=== PATIENT | male | born 1945 | race Caucasian/White ===

== ENCOUNTER 2019-01-22 13:35 | Emergency (ER) | payer OTHER ==
[2019-01-22 13:41] VITALS: TEMP 97.6; BMI 23.7
--- NOTE | 2019-01-22 13:41 | PDOC ---
History of Present Illness - General Chief Complaint: Laceration Stated Complaint: FALL Time Seen by Provider: 01/22/19 13:41 History Source: Patient Exam Limitations: No Limitations - History of Present Illness Initial Comments: Pt is a 73 yo M, with PMH of PD, CAD (stents x2 and aortic valve repair, on Plavix), BPH, and brain abscess (recurrent with craniectomy, last procedure 2011 ), who is presenting via EMS after a fall from standing height. Pt was walking in an asphalt parking lot, when he tripped in a saba patch and hit the L-side of his head, sustaining a laceration over the L eyebrow. The pt complains only of mild pain over the laceration site. Pt denies any LOC, nausea, vomiting, or weakness. Pt is accompanied by his , who states his behavior has seemed the same. Pt denies any precipitating symptoms prior to the fall, and remembers falling to the ground. Pt denies any fevers/chills, headache, vision changes, syncope, chest pain, palpitations, SOB, nausea/vomiting, abdominal pain, urinary symptoms, diarrhea/constipation, or leg swelling. Social: Pt denies any cigarette, alcohol, or drug use. Pt denies any recent travel or sick contacts. Surgical: aortic valve, cardiac stent x2, craniectomy (abscess drainage). Family: no relevant history. 01/22/19 17:45 01/22/19 17:53 Past History - Travel Traveled outside of the country in the last 30 days: No Close contact w/someone who was outside of country & ill: No - Past Medical History Allergies/Adverse Reactions: Allergies Allergy/AdvReac Type Severity Reaction Status Date / Time Iodinated Contrast- Oral and Allergy Verified 01/22/19 13:36 IV Dye [Iodinated Contrast Media - IV Dye] IV CONTRAST Allergy Uncoded 01/22/19 13:36 Home Medications: Ambulatory Orders Aspirin [ASA -] 81 mg PO DAILY 01/22/19 Carbidopa/Levodopa [Carbidopa-Levodopa 25-100 Tab] 2 each PO QID 01/22/19 Clopidogrel Bisulfate [Plavix] 75 mg PO DAILY 01/22/19 Dutasteride [Avodart] 0.5 mg PO DAILY 01/22/19 Rasagiline Mesylate [Azilect] 1 mg PO DAILY 01/22/19 Rosuvastatin Calcium [Crestor] 20 mg PO HS 01/22/19 Cardiac Disorders: Yes (aortic valve repair, CAD w stents x2, on plavix) Hx Myocardial Infarction: No COPD: No HTN: Yes Kidney Stones: Yes Other medical history: GLAUCOMA,ENLARGED PROSTATE, PARKINSONS, - Surgical History Cardiac Surgery: Yes (2 STENTS) - Immunization History Immunization Up to Date: No - Suicide/Smoking/Psychosocial Hx Smoking History: Former smoker Have you smoked in the past 12 months: No If you are a former smoker, when did you quit?: 35 years ago Information on smoking cessation initiated: No Hx Alcohol Use: No Drug/Substance Use Hx: No Substance Use Type: None Hx Substance Use Treatment: No Trauma Specific PMHX - Complaint Specific PMHX Arthritis: No Back Injury: No Neck Injury: No Hx Sacro Iliac Joint Dysfunction: No Review of Systems - Review of Systems Able to Perform ROS?: Yes Is the patient limited Bulgarian proficient: No Constitutional: Yes: Weight Stable. No: Chills, Diaphoresis, Fever, Loss of Appetite, Weakness HEENTM: Yes: Eye Pain (no pain with EOM, pain over L eye at lac site). No: Recent change in vision, Double Vision, Ear Discharge, Nose Pain, Nose Bleeding , Hearing Loss, Throat Pain, Throat Swelling Respiratory: No: Cough, Orthopnea, Shortness of Breath Cardiac (ROS): No: Chest Pain, Edema, Irregular Heart Rate, Lightheadedness, Palpitations, Syncope, Chest Tightness ABD/GI: No: Constipated, Diarrhea, Nausea, Poor Appetite, Poor Fluid Intake, Vomiting : No: Burning, Dysuria, Pain, Urgency Musculoskeletal: No: Back Pain, Joint Pain, Muscle Pain, Muscle Weakness, Neck Pain Integumentary: No: Rash Neurological: No: Headache, Numbness, Paresthesia, Weakness, Unsteady Gait, Dizziness Psychiatric: No: Sleep Pattern Change, Change in Appetite Endocrine: No: Increased Urine, Change in Weight Hematologic/Lymphatic: No: Anemia, Blood Clots, Easy Bleeding, Easy Bruising All Other Systems: Reviewed and Negative *Physical Exam - Vital Signs Last Vital Signs Temp Pulse Resp BP Pulse Ox 97.6 F 63 18 120/60 99 01/22/19 13:36 01/22/19 13:36 01/22/19 13:36 01/22/19 13:36 01/22/19 13:36 - Physical Exam Comments: Vitals stable, pt afebrile. Pt in NAD, normal body habitus. Bandage with bleeding present over L eyebrow. Pt alert and oriented x3. consumer insight manager generally intact, muscular strength and sensation intact. No midline spinal tenderness, step-offs, or crepitus. Head normocephalic. Vertical, linear laceration over distal L eyebrow ~2 cm, no obvious foreign bodies present. No crepitus over L orbital bones. Eyes PERRLA (3 mm), EOMI. Oropharynx without erythema or exudates, no LAD b/l. No nasal congestion, hearing intact. Clear heart sounds, S1/S2, no JVD, b/l pedal edema, or heart murmur. Clear lung sounds, no respiratory distress, wheezes, crackles, or accessory muscle use. No abdominal or CVA tenderness to palpation, no rebound, no guarding. Abdomen soft, non-distended, and with normoactive bowel sounds. Skin without jaundice or rash, no other abrasions or superficial trauma noted. Pt moving all extremities without tenderness. 01/22/19 15:05 01/22/19 18:56 Procedures - Laceration/Wound Repair Left Distal Eye Wound Length: to 2.5 cm Wound Explored: clean, no foreign body present Wound's Depth, Shape: superficial, irregular Irrigated w/ Saline: Yes Betadine Prep: Yes Anesthesia: 1% Lidocaine w/ Epi Amount of Anesthetic (ccs): 4 Wound Debrided: minimal Wound Repaired With: Sutures Suture Size/Type: 5:0 Number of Sutures: 5 (1 figure 8 stitch) Layer Closure: No Sterile Dressing Applied: No (bacitracin applied) Splint Applied: No Sling Applied: No ED Treatment Course - LABORATORY CBC & Chemistry Diagram: 01/22/19 15:05 01/22/19 15:05 Medical Decision Making - Medical Decision Making Pt was seen at bedside, also will be seen by attending Dr. White. Pt presenting via EMS after a fall from standing height. Pt was walking in an asphalt parking lot, when he tripped in a saba patch and hit the L-side of his head, sustaining a laceration over the L eyebrow. The pt complains only of mild pain over the laceration site. Pt denies any LOC, nausea, vomiting, or weakness. Pt is accompanied by his , who states his behavior has seemed the same. Pt denies any precipitating symptoms prior to the fall, and remembers falling to the ground. Pt denies any fevers/chills, headache, vision changes, syncope, chest pain, palpitations, SOB, nausea/vomiting, abdominal pain, urinary symptoms, diarrhea/constipation, or leg swelling. Will obtain CT scans of head and C-spine, as pt is >65 yrs of age and on anticoagulants, to evaluate for any signs of hemorrhage/hematoma. Ordered work-up including non-contrast CT head and C-spine. Pts last tetanus shot was 2015. Provided 650 mg PO tylenol for improvement of pain. Will continue to reassess pt and monitor for symptomatic improvement. CT C-spine showed no acute fractures. CT head: 0.5 cm L frontal subcortical hyperdense focus, probably representing a small hemorrhage. S/p R suboccipital craniectomy with subjacent cerebellar encepholomalacia. Repaired laceration over L eyebrow (please see procedure note). Continued bleeding from site, one figure 8 stitch was used, with bleeding then well- controlled. No expanding hematoma was evident after repair. Bacitracin applied after repair. Spoke with neurosurgery on-call (Dr. Leong) who recommends transfer to [facility], considering pts extensive medical history, on AC, with new hemorrhage. Ordered pre-op labs, ECG, chest x-ray to prepare for transfer. 01/22/19 14:58 Chest x-ray shows no acute pathology. ECG shows chronic RBBB, similar to prior ECG (2016). No significant TWIs or ST segment changes. CBC, CMP, and coags all WNL. [facility] accepted pt for admission at 16:05, will arrange ER-ER transfer, with Dr. Barnes (neurosurg) admitting. ACLS unit requested. Providing 1 g ofirmev IV for pain. ACLS crew at bedside to take pt to [facility]. BP 150/80, HR 58, O2 98% on RA; pt resting comfortably. Bleeding continued to be well controlled from suture site. Return precautions and instructions given to pt and for laceration repair and suture removal. 01/22/19 16:57 01/22/19 17:39 *DC/Admit/Observation/Transfer Diagnosis at time of Disposition: Brain bleed Fall from standing Qualifiers: Encounter type: initial encounter Qualified Code(s): W19.XXXA - Unspecified fall, initial encounter Head trauma Qualifiers: Encounter type: initial encounter Qualified Code(s): S09.90XA - Unspecified injury of head, initial encounter Laceration of forehead, left, complicated Qualifiers: Encounter type: initial encounter Qualified Code(s): S01.81XA - Laceration without foreign body of other part of head, initial encounter - Discharge Dispostion Disposition: TRANSFER ACUTE CARE/OTHER HOSP Condition at time of disposition: Stable Decision to Admit order: No - Referrals Referrals: Jonathan Josue [Primary Care Provider] - - Patient Instructions - Post Discharge Activity - Transfer to Acute Care Facility Receiving Facility: [facility] (Su Lemus Child)
--- NOTE | 2019-01-22 13:42 | PDOC ---
Attending Attestation - Resident Resident Name: Nakita Galicia - ED Attending Attestation I have performed the following: I have examined & evaluated the patient, The case was reviewed & discussed with the resident, I agree w/resident's findings & plan, Exceptions are as noted - HPI HPI: 01/22/19 15:16 Tripped and fell, striking his left forehead. No loss of consciousness. Sustained a laceration. On Plavix for aortic valve replacement/stents. - Physicial Exam PE: 01/22/19 15:17 Alert and oriented no acute distress cheerful and cooperative. Mild headache. Afebrile, vital signs normal Neurological: Cranial nerves intact. Strength full and symmetric. No focal sensory or motor deficits. Gait stable Contusion left frontal scalp and forehead. No hematoma or skull defect palpable. Laceration with mild oozing over the left eyebrow. No ocular trauma. No tenderness to palpation over the facial bones including the orbits. No facial bone deformities PERRLA 4 mm, fundi benign with sharp disc margins and good central venous pulsations, charlton intact to confrontation ENT clear Neck without point tenderness or deformity, full range of motion without pain. No bruits masses or nodes Chest clear to P&A. No rib cage or chest wall deformities or tenderness CV S1 and S2 normal, 2/6 holosystolic murmur in the aortic area, pulses full. No bruits. Abdomen soft nontender without mass or organomegaly. No CVAT No pelvic or spine tenderness or deformity Extremities: No visible or palpable trauma, full range of motion of the shoulders and hips without limitation. Skin clear, no rash, adequate turgor and wet mucous membranes - Medical Decision Making 01/22/19 15:20 Assessment: Head injury, forehead laceration, rule out intracranial bleed Plan: CT, repair of laceration by Dr. Galicia, and further medical evaluation as indicated CT shows a small bleed without edema or midline shift. Dr. Thomas contacted and suggests referral to [facility] and transfer initiated. Patient remains medically and neurologically stable and asymptomatic. 01/22/19 15:54
[2019-01-22] MEDS ORDERED: ACETAMINOPHEN 325 MG TABLET (FP) PO ONE (14:02)
[2019-01-22] MEDS ORDERED: ACETAMINOPHEN 325 MG TABLET (FP) ONE (14:37)
[2019-01-22 15:35] LABS: BASO % 0.5 % (0-2.0); EOS % 1.3 % (0-4.5); HEMATOCRIT 37.8 % (35.4-49); HEMOGLOBIN 12.7 GM/dl (11.7-16.9); LYMPH % 20.5 % (8-40); MCH 29.8 pg (25.7-33.7); MCHC 33.7 g/dl (32.0-35.9); MEAN CELL VOLUME 88.6 fl (80-96); MEAN PLT VOLUME 9.5 fl (7.5-11.1); MONO % 8.2 % (3.8-10.2); NEUT % 69.5 % (42.8-82.8); PLATELET COUNT 135 K/MM3 (134-434); RBC 4.27 M/mm3 (4.00-5.60); RDW 13.7 % (11.9-15.9); WHITE BLOOD COUNT 6.2 K/mm3 (4.0-10.8)
[2019-01-22 15:41] LABS: INR 1.1 (0.82-1.09); PROTHROMBIN TIME (PATIENT) 12.3 SEC (10.2-13.0)
[2019-01-22 15:44] LABS: ALBUMIN 3.7 g/dl (3.4-5.0); ALK PHOS 52 U/L (45-117); ANION GAP 8 MMOL/L (8-16); BLOOD UREA NITROGEN 17 mg/dl (7-18); CHLORIDE 103 mmol/L (98-107); CO2 25 mmol/L (21-32); CREATININE 0.5 mg/dl (0.55-1.3); GLUCOSE,RANDOM 98 mg/dl (74-106); POTASSIUM 3.7 mmol/L (3.5-5.1); SGOT/AST 13 U/L (15-37); SGPT/ALT 4 U/L (13-61); SODIUM 136 mmol/L (136-145); TOT PROT 6.2 g/dl (6.4-8.2)
[2019-01-22] MEDS ORDERED: ACETAMINOPHEN 1000 MG/100 ML VIAL (NON FORMULARY) IVPB ONE (16:12)
[2019-01-22] MEDS ORDERED: ACETAMINOPHEN INJECTION 100 ML IVPB ONE (16:16)
[2019-01-22 16:58] VITALS: BP 150/83; PULSE 58
[2019-01-22] MEDS ORDERED: AZITHROMYCIN 250 MG TABLET PO ONE (19:01)
--- NOTE | 2019-01-23 12:16 | EKG ---
Test Reason : Blood Pressure : / mmHG Vent. Rate : 053 BPM Atrial Rate : 053 BPM P-R Int : 168 ms QRS Dur : 144 ms QT Int : 460 ms P-R-T Axes : -04 011 003 degrees QTc Int : 431 ms SINUS BRADYCARDIA WITH MARKED SINUS ARRHYTHMIA RIGHT BUNDLE BRANCH BLOCK INFERIOR INFARCT , AGE UNDETERMINED ABNORMAL ECG NO PREVIOUS ECGS AVAILABLE Confirmed by DAYANNA KIMBALL MD ([id number]) on 01/23/2019 12:16:02 PM Referred By: MD KRUGER Confirmed By:DAYANNA KIMBALL MD
== END 2019-01-22 17:05 | disposition short-term general hospital (02) ==
LOC: FER 13:35
PROC: 0HQ1XZZ Repair Face Skin, External Approach (ICD-10-PCS; principal; 2019-01-22)
PROC: 3E033NZ Introduction of Analgesics, Hypnotics, Sedatives into Peripheral Vein, Percutaneous Approach (ICD-10-PCS; 2019-01-22)
DX: S06.360A Traumatic hemorrhage of cerebrum, unspecified, without loss of consciousness, initial encounter (principal); S01.81XA Laceration without foreign body of other part of head, initial encounter; W18.39XA Other fall on same level, initial encounter; Y93.89 Activity, other specified; Y92.481 Parking lot as the place of occurrence of the external cause; I10 Essential (primary) hypertension; Z87.442 Personal history of urinary calculi; H40.9 Unspecified glaucoma; G20 Parkinson's disease; N40.0 Benign prostatic hyperplasia without lower urinary tract symptoms; I25.10 Atherosclerotic heart disease of native coronary artery without angina pectoris; G06.0 Intracranial abscess and granuloma; Z87.891 Personal history of nicotine dependence
CPT/HCPCS: 36415; 70450-TC; 71045-TC-FY; 72125-TC; 80053; 82550; 82553; 84484; 85025; 85610; 93005; 99285-25; J0131

== ENCOUNTER 2019-05-27 10:44 | Emergency (ER) | payer OTHER ==
[2019-05-27 10:49] VITALS: BP 123/73; PULSE 65; TEMP 98.3; BMI 22.4
--- NOTE | 2019-05-27 11:18 | PDOC ---
History of Present Illness - General Chief Complaint: Pain Stated Complaint: ABD PAIN Time Seen by Provider: 05/27/19 10:46 History Source: Patient, Family Exam Limitations: No Limitations - History of Present Illness Initial Comments: 05/27/19 11:15 74 y/o male healing from a brain bleed due to a fall in January, presents to ER with abdominal pain that started today. No N/V/D/C. Has not taken anything for the pain. No fever or chills. Denies back pain, fall or trauma. Hx of hernia repair as well. Noticed more swelling in testicle, but no pain. No dysuria. Denies blood in stool. Pain mostly in umbilical area, worse with standing goes away with lying down. No pain at this time in ER. Quality: reports: mild Abdominal Pain Onset Location: reports: periumbilical Pain Radiation: reports: no radiation Past History - Past Medical History Allergies/Adverse Reactions: Allergies Allergy/AdvReac Type Severity Reaction Status Date / Time Iodinated Contrast Media Allergy Verified 05/27/19 10:45 [Iodinated Contrast Media - IV Dye] IV CONTRAST Allergy Uncoded 05/27/19 10:45 Home Medications: Ambulatory Orders Aspirin [ASA -] 81 mg PO DAILY 01/22/19 Carbidopa/Levodopa [Carbidopa-Levodopa 25-100 Tab] 2 each PO QID 01/22/19 Clopidogrel Bisulfate [Plavix] 75 mg PO DAILY 01/22/19 Dutasteride [Avodart] 0.5 mg PO DAILY 01/22/19 Rasagiline Mesylate [Azilect] 1 mg PO DAILY 01/22/19 Rosuvastatin Calcium [Crestor] 20 mg PO HS 01/22/19 Baclofen 5 mg PO ASDIR 05/27/19 Cholecalciferol (Vitamin D3) [Vitamin D3] 1,000 unit PO DAILY 05/27/19 Cyanocobalamin (Vitamin B-12) [Vitamin B12] 2,500 mcg PO DAILY 05/27/19 Cardiac Disorders: Yes (aortic valve repair, CAD w stents x2, on plavix) CVA: Yes (cody maier) COPD: No HTN: Yes Kidney Stones: Yes Other medical history: parkinson's - Surgical History Abdominal Surgery: Yes (hernia repair) Cardiac Surgery: Yes (stents, avr) - Immunization History Immunization Up to Date: No - Suicide/Smoking/Psychosocial Hx Smoking History: Former smoker Have you smoked in the past 12 months: No If you are a former smoker, when did you quit?: 35 years ago Information on smoking cessation initiated: No Hx Alcohol Use: No Drug/Substance Use Hx: No Substance Use Type: None Hx Substance Use Treatment: No Review of Systems - Review of Systems Able to Perform ROS?: Yes Is the patient limited Korean proficient: No Constitutional: Yes: Symptoms Reported. No: Chills, Fever HEENTM: No: Throat Pain Respiratory: No: Cough, Shortness of Breath Cardiac (ROS): No: Chest Pain ABD/GI: No: Diarrhea, Nausea, Vomiting : No: Burning Musculoskeletal: No: Back Pain Integumentary: No: Rash All Other Systems: Reviewed and Negative *Physical Exam - Vital Signs Last Vital Signs Temp Pulse Resp BP Pulse Ox 98.3 F 65 18 123/73 99 05/27/19 10:44 05/27/19 10:44 05/27/19 10:44 05/27/19 10:44 05/27/19 10:44 - Physical Exam General Appearance: Yes: Nourished, Appropriately Dressed. No: Apparent Distress HEENT: positive: EOMI, Normal ENT Inspection, Normal Voice, Symmetrical, Pharynx Normal Neck: positive: Trachea midline, Normal Thyroid, Supple. negative: Tender, Rigid Respiratory/Chest: positive: Lungs Clear, Normal Breath Sounds. negative: Chest Tender, Respiratory Distress Cardiovascular: positive: Regular Rhythm, Regular Rate, S1, S2. negative: Edema , JVD, Murmur Vascular Pulses: Femoral (R): 4+, Femoral (L): 4+, Carotid (R): 4+, Carotid (L) : 4+, Dorsalis-Pedis (R): 4+, Doralis-Pedis (L): 4+ Gastrointestinal/Abdominal: positive: Normal Bowel Sounds, Flat, Soft. negative : Tender, Organomegaly, Pulsatile Mass (no RLQ, LLQ tenderness, no RUQ, LUQ tenderness +BS, no umbilcial hernia, left inguinal hernia, reducible, swollen testicle, non tender) Male Genitalia: positive: normal genitalia, hernia (left inguinal hernia, large extending into scrotal sac, no tenderness, reducible). negative: testicular tenderness Lymphatic: negative: Adenopathy, Tenderness, Other Musculoskeletal: positive: Normal Inspection. negative: CVA Tenderness Extremity: positive: Normal Capillary Refill, Normal Inspection, Normal Range of Motion. negative: Swelling, Calf Tenderness Integumentary: positive: Normal Color, Warm Neurologic: positive: bi report developer II-XII NML intact, Fully Oriented, Alert, Normal Mood/ Affect, Normal Response, Motor Strength 02/09 ED Treatment Course - LABORATORY CBC & Chemistry Diagram: 05/27/19 11:30 05/27/19 11:30 Progress Note - Progress Note Progress Note: abdominal pain, await labs and CT scan. Labs negative, UA negative CT abd/pelvis: no obstruction, large left inguinal hernia, no incarceration seen small gallstones, no acute cholecystitis Patient is feeling better, will discharge home Family in agreement with plan Needs surgical follow up *DC/Admit/Observation/Transfer Diagnosis at time of Disposition: Inguinal hernia Qualifiers: Obstruction and gangrene presence: without obstruction or gangrene Laterality: unilateral Recurrence: not specified as recurrent Qualified Code(s): K40.90 - Unilateral inguinal hernia, without obstruction or gangrene, not specified as recurrent - Discharge Dispostion Disposition: HOME Condition at time of disposition: Stable Decision to Admit order: No - Referrals Referrals: Jonathan Josue [Primary Care Provider] - Aniket Douglass MD [Non Staff, Medical] - Nathan Santacruz MD [Staff Physician] - - Patient Instructions Printed Discharge Instructions: DI for Groin Hernia Additional Instructions: Fluids, rest, Tylenol If worsen return to ER Follow up with Surgeon - Post Discharge Activity
[2019-05-27 11:56] LABS: BASO % 0.6 % (0-2.0); EOS % 1.2 % (0-4.5); HEMATOCRIT 41.1 % (35.4-49); HEMOGLOBIN 13.7 GM/dl (11.7-16.9); LYMPH % 24.9 % (8-40); MCH 30.3 pg (25.7-33.7); MCHC 33.3 g/dl (32.0-35.9); MEAN PLT VOLUME 9.7 fl (7.5-11.1); MONO % 7.9 % (3.8-10.2); NEUT % 65.4 % (42.8-82.8); PLATELET COUNT 160 K/MM3 (134-434); RBC 4.52 M/mm3 (4.00-5.60); RDW 13.2 % (11.9-15.9); WHITE BLOOD COUNT 5.8 K/mm3 (4.0-10.8)
[2019-05-27 12:04] LABS: ALBUMIN 4.1 g/dl (3.4-5.0); BILIRUBIN,TOTAL 2.3 mg/dl (0.2-1); CALCIUM 9.1 mg/dl (8.5-10); CREATININE 0.6 mg/dl (0.55-1.3); POTASSIUM 3.7 mmol/L (3.5-5.1); TOT PROT 6.9 g/dl (6.4-8.2)
[2019-05-27 12:18] LABS: EPITHELIAL CELLS FEW /hpf
[2019-05-27 12:19] LABS: URINE MUCUS 2+
== END 2019-05-27 14:00 | disposition home or self-care (01) ==
LOC: FER 10:44
DX: K40.90 Unilateral inguinal hernia, without obstruction or gangrene, not specified as recurrent (principal); Z87.891 Personal history of nicotine dependence; I25.10 Atherosclerotic heart disease of native coronary artery without angina pectoris; Z95.5 Presence of coronary angioplasty implant and graft; G20 Parkinson's disease
CPT/HCPCS: 36415; 74176-TC; 80053; 81003; 81015; 85025; 99284-25

== ENCOUNTER 2019-09-22 13:34 | Emergency (ER) | payer OTHER ==
[2019-09-22 13:49] VITALS: BMI 23.6
--- NOTE | 2019-09-22 14:20 | PDOC ---
History of Present Illness - General Chief Complaint: Injury Stated Complaint: Injury Time Seen by Provider: 09/22/19 13:51 - History of Present Illness Initial Comments: 09/22/19 14:19 HPI: 74 y/o M with hx of Parkinsons, CAD s/p stents x2 and aortic valve repair (on ASA and Plavix), BPH, head trauma as a child s/p multiple surgeries c/b chronic ear infection and recurrent brain abscess requiring craniectomy and ? debridement (last procedure 2011), who is presenting via EMS after a mechanical fall. Patient was at [facility] when he slipped on spilled coke on the ground. He landed on his left side and denies head trauma, however, a witness states he saw the patient's head bounce on the floor. Patient denies HILL, LH, pain, chest pain, SOB, abd pain, n/v, seizure. Patient was ambulatory at the scene. PMHx: as noted above ROS: as noted SHx: Denies tobacco use; no alcohol use; no rec drugs Allergies: NKDA ROS: GENERAL/CONSTITUTIONAL: No fever or chills. No weakness. HEAD, EYES, EARS, NOSE AND THROAT: No change in vision. No ear pain or discharge. No sore throat. CARDIOVASCULAR: No chest pain or shortness of breath RESPIRATORY: No cough, wheezing, or hemoptysis. GASTROINTESTINAL: No nausea, vomiting, diarrhea or constipation. GENITOURINARY: No dysuria, frequency, or change in urination. MUSCULOSKELETAL: No joint or muscle swelling or pain. No neck or back pain. SKIN: No rash NEUROLOGIC: No headache, vertigo, loss of consciousness, or change in strength/ sensation. ENDOCRINE: No increased thirst. No abnormal weight change HEMATOLOGIC/LYMPHATIC: No anemia, easy bleeding, or history of blood clots. ALLERGIC/IMMUNOLOGIC: No hives or skin allergy. PE: GENERAL: Awake, alert, and fully oriented, no acute distress HEAD: No signs of trauma, normocephalic, atraumatic EYES: EOMI, sclera anicteric, conjunctiva clear ENT: Auricles normal inspection, hearing grossly normal, nares patent, oropharynx clear without exudates. Moist mucosa NECK: Normal ROM, no lymphadenopathy LUNGS: No increased work of breathing, symmetrical chest rise, clear to auscultation bilaterally, no wheezes, crackles or rhonchi HEART: Regular rate and rhythm, normal S1 and S2, systolic murmur, peripheral pulses 2+ and equal bilaterally. ABDOMEN: Soft, nondistended, nontender, normoactive bowel sounds. No guarding, no rebound. No masses. No CVAT MUSCULOSKELETAL: Normal inspection, FROM, 1cm left knee abrasion NEUROLOGICAL: Cranial nerves II through XII grossly intact. Normal speech, normal gait, no focal sensorimotor deficits SKIN: Warm, Dry, normal turgor, no rashes or lesions noted Past History - Past Medical History Allergies/Adverse Reactions: Allergies Allergy/AdvReac Type Severity Reaction Status Date / Time Iodinated Contrast Media Allergy Verified 09/22/19 13:45 [Iodinated Contrast Media - IV Dye] IV CONTRAST Allergy Uncoded 09/22/19 13:45 Home Medications: Ambulatory Orders Aspirin [ASA -] 81 mg PO DAILY 01/22/19 Carbidopa/Levodopa [Carbidopa-Levodopa 25-100 Tab] 2 each PO QID 01/22/19 Clopidogrel Bisulfate [Plavix] 75 mg PO DAILY 01/22/19 Dutasteride [Avodart] 0.5 mg PO DAILY 01/22/19 Rasagiline Mesylate [Azilect] 1 mg PO DAILY 01/22/19 Rosuvastatin Calcium [Crestor] 20 mg PO HS 01/22/19 Baclofen 5 mg PO ASDIR 05/27/19 Cholecalciferol (Vitamin D3) [Vitamin D3] 1,000 unit PO DAILY 05/27/19 Cyanocobalamin (Vitamin B-12) [Vitamin B12] 2,500 mcg PO DAILY 05/27/19 Cardiac Disorders: Yes (aortic valve repair, CAD w stents x2, on plavix) CVA: Yes (cody maier) COPD: No HTN: Yes Kidney Stones: Yes - Surgical History Abdominal Surgery: Yes (hernia repair) Cardiac Surgery: Yes (stents, avr) - Immunization History Immunization Up to Date: No - Psycho Social/Smoking Cessation Hx Smoking History: Never smoked Have you smoked in the past 12 months: No If you are a former smoker, when did you quit?: 35 years ago Hx Alcohol Use: No Drug/Substance Use Hx: No Substance Use Type: None Hx Substance Use Treatment: No *Physical Exam - Vital Signs Last Vital Signs Temp Pulse Resp BP Pulse Ox 97.6 F 65 19 101/51 L 97 09/22/19 13:35 09/22/19 13:35 09/22/19 13:35 09/22/19 13:35 09/22/19 13:35 ED Treatment Course - RADIOLOGY Radiology Studies Ordered: Category Date Time Status CERVICAL SPINE CT W/O CONTR [CT] Stat CT Scan 09/22/19 14:[address] WITHOUT CONTRAST [CT] Stat CT Scan 09/22/19 14:16 Ordered Medical Decision Making - Medical Decision Making 09/22/19 14:55 74 y/o M with hx of Parkinsons, CAD s/p stents x2 and aortic valve repair (on ASA and Plavix), BPH, head trauma as a child s/p multiple surgeries c/b chronic ear infection and recurrent brain abscess requiring craniectomy and ? debridement (last procedure 2011), who is presenting via EMS after a mechanical fall with possible head trauma, no LOC. VSS, AF. PE with minor left knee abrasion -CT head, CT c spine 09/22/19 16:26 CT head/cspine with no acute pathology Discussed results with patient and return pcxns; they understand information and all questions answered Discharge - Discharge Information Problems reviewed: Yes Clinical Impression/Diagnosis: Fall, Closed head injury Condition: Stable Disposition: HOME - Follow up/Referral Referrals: Jonathan Josue [Primary Care Provider] - - Patient Discharge Instructions Patient Printed Discharge Instructions: DI for Closed Head Injury Additional Instructions: Additional Instructions: Please return to the emergency department with any new or worsening symptoms or concerns including confusion, seizures, fainting, worsening headache, weakness, persistent vomiting. Please follow up with your neurologist for brain bleeds as needed. You may continue your medications as prescribed. You may take Tylenol 650mg every 6-8 hours as needed for pain control - Post Discharge Activity
[2019-09-22] MEDS ORDERED: DIPHTH,PERTUSS(ACELL),TET 0.5 ML DISP.SYRIN IM ONE ×2 (14:24→15:52)
[2019-09-22] MEDS ORDERED: BACITRACIN 0.9 GM PACKET ONE (16:08)
--- NOTE | 2019-09-22 16:11 | PDOC ---
Attending Attestation - Resident Resident Name: Carlos AlbertoYadirabahman - ED Attending Attestation I have performed the following: I have examined & evaluated the patient, The case was reviewed & discussed with the resident, I agree w/resident's findings & plan - HPI HPI: 09/22/19 16:07 74y/o M h/o traumatic brain bleed, Parkison's presents s/p slip/fall. Pt walks with walker/cane, slipped on wet floor in fast food restaurant, fell to ground onto L side, striking L knee. unknown direct head injury, no LOC. able to stand afterwards without difficulty, presents now without complaints. no cp/palp, at baseline neuro per . takes asa/plavix for cardiac history, 1y s/p TAVR. - Physicial Exam PE: 09/22/19 16:09 VSS alert, well appearing in nad, speaking full sentences baseline slightly increased muscle tone but FROM all joints including L hip/knee /ankle 1cm round abrasion L knee without deformity/effusion/focal bony ttp. remainder of trauma exam completely unremarkable scattered superficial 1-2mm abrasions from pt's bird - Medical Decision Making 09/22/19 16:10 74y/o M with slip and fall today, isolated L knee injury without evidence of bony involvement. trauma exam unremarkable here without evidence of direct head injury but did fall on asa/plavix. ct head given acceleration/deceleration and TBI history no indication for knee imaging, clinically clears. update tetanus at bedside, will d/c home if above wnl
[2019-09-22 16:46] VITALS: BP 110/64; PULSE 86; TEMP 98.3
== END 2019-09-22 16:46 | disposition home or self-care (01) ==
LOC: JER 13:34
DX: S09.90XA Unspecified injury of head, initial encounter (principal); W18.39XA Other fall on same level, initial encounter; Y93.89 Activity, other specified; Y92.89 Other specified places as the place of occurrence of the external cause; Z91.041 Radiographic dye allergy status; G20 Parkinson's disease; I25.10 Atherosclerotic heart disease of native coronary artery without angina pectoris; N40.0 Benign prostatic hyperplasia without lower urinary tract symptoms; Z87.891 Personal history of nicotine dependence; Z95.5 Presence of coronary angioplasty implant and graft; I10 Essential (primary) hypertension; Z86.73 Personal history of transient ischemic attack (TIA), and cerebral infarction without residual deficits
CPT/HCPCS: 70450-TC; 72125-TC; 90715; 99282-25

== ENCOUNTER 2020-07-18 12:56 | Emergency (ER) | payer OTHER ==
--- OUTSIDE RECORDS SUMMARY | 2020-07-18 13:00 | XMS ---
:1945 Author Organization [facility] Care Team Providers Name Role Phone Barrington Unavailable Unavailable WHIT KHAN Unavailable Unavailable TORREY ADAMS Unavailable Unavailable NOREEN FLORES Unavailable Unavailable MAGUI OLMSTEAD Unavailable Unavailable Aj Garcia Unavailable Unavailable Noble Packer Unavailable Unavailable NELLY HENDRICKS Unavailable Unavailable MONTY SUAZO Unavailable Unavailable Re-disclosure Warning The records that you are about to access may contain information from federally- assisted alcohol or drug abuse programs. If such information is present, then the following federally mandated warning applies: This information has been disclosed to you from records protected by federal confidentiality rules (42 CFR part 2). The federal rules prohibit you from making any further disclosure of this information unless further disclosure is expressly permitted by the written consent of the person to whom it pertains or as otherwise permitted by 42 CFR part 2. A general authorization for the release of medical or other information is NOT sufficient for this purpose. The Federal rules restrict any use of the information to criminally investigate or prosecute any alcohol or drug abuse patient.The records that you are about to access may contain highly sensitive health information, the redisclosure of which is protected by Article 27-F of the [facility] Public Health law. If you continue you may haveaccess to information: Regarding HIV / AIDS; Provided by facilities licensed or operated by the [facility] Office of Mental Health; or Provided by the [facility] Office for People With Developmental Disabilities. If such information is present, then the following [facility] mandated warning applies: This information has been disclosed to you from confidential records which are protected by state law. State law prohibits you from making any further disclosure of this information without the specific written consent of the person to whom it pertains, or as otherwise permitted by law. Any unauthorized further disclosure in violation of state law may result in a fine or chcf sentence or both. A general authorization for the release of medical or other information is NOT sufficient authorization for further disclosure. Allergies and Adverse Reactions Type Description Substance Reaction Status Data Source(s ) TIMOLOL MALEATE TIMOLOL MALEATE NEXT GEN ([facility]) Encounters Encounter Providers Location Date Indications Data Source(s ) Outpatient Attender: Rachel 07/13/2020 NEXTG EN ([facility] MaReferrer: 10:30:00 AM Medical - [facility] Rachel Ma [facility] Medical Grou p ) Outpatient Attender: Rachel 06/29/2020 NEXTG EN ([facility] MaReferrer: 10:30:00 AM Medical - [facility] Rachel Ma [facility] Medical Grou p ) Outpatient Attender: Rachel 06/28/2020 NEXTG EN ([facility] Ma 08:23:00 PM [facility] Medical [facility]) Outpatient Attender: 04/27/2020 M54.2 [facility] dania HENDRICKS, 12:14:00 Health Care ZVIAdmitter: [employer] Wilfrido HENDRICKSerrer: NOREEN FLORES M54.2 Outpatient Attender: ISHAN 04/24/2020 06:00:00 M54.12 [facility] ROBERTAdmitter: [facility] Wilfrido HENDRICKSerrer: MAGUI Klein M54.12 Outpatient Attender: Cheko 04/14/2020 12:48:00 NEXTGEN ([facility] Birdie PM EDT Medical [facility] Medical [facility]) Outpatient Attender: Cheko 10/17/2019 04:27:00 NEXTGEN ([facility] Birdie PM EST Medical [facility] Medical [facility]) Outpatient Attender: Tim 10/16/2019 12:00:00 NEXTGEN ([facility] Denno AM EST [facility]) Outpatient Attender: Cheko 10/15/2019 01:41:00 NEXTGEN ([facility] Birdie PM EST Medical [facility] Medical [facility]) Outpatient Attender: Cheko 10/09/2019 08:14:00 NEXTGEN ([facility] Birdie AM EST Medical - [facility]) Outpatient Attender: LAKEISHA, 09/09/2019 06:00:00 Z95.11/9329 [facility] TANYAAdmitter: AM EST Health Car e [facility] TANYAReferrer: KHANWHIT Z95.2/33110 Outpatient Attender: ANGIE 08/12/2019 I65.23 [id number] [facility] ROMEOAdmitter: ANGIE, 06:00:00 AM EST [facility] Care ROMEOReferrer: Ben ADAMS belkys TORREY I65.23 [id number] Outpatient Attender: Cheko 06/11/2019 12:10:00 PM NEXTGEN ([facility] Outpatient Attender: Cheko 06/05/2019 11:40:00 AM NEXTGEN ([facility] TrivediReferrer: EDT Medical [facility] Medical [facility]) Medications Medication Brand Start Product Dose Route Administrative Pharmacy [facility] Indications Reaction Description Data Name Date Form Instructions Instructions Source(s) Brimonidine SIMBRI 04/14/ instill 1 drop RP NEXTGEN tartrate 2 2019 by ophthalmic ([facility] MG/ML / 12:00: route 2 times M edical - brinzolamid 00 AM every day into [facility] e 10 MG/ML EDT both eyes Medi [facility]) Suspension [Simbrinza] 1 %-0.2 % 1 %-0.2 % This may be an active medication. No end date is available. travoprost 0.04 TRAVATAN Z 04/14/2020 instill 1 drop RP [facility] MG/ML 12:00:00 AM by ophthalmic ([facility] Ophthalmic EDT route every M edical - [place] day into [facility] edical [Travatan] affected [facility]) 0.004 % 0.004 % eye(s) in the evening This may be an active medication. No end date is available. benztropine BENZTROPINE 01/30/2017 take 1 RP NEXTGEN mesylate 1 MG MESYLATE 12:00:00 AM tablet by ([facility] Oral Tablet 1 EDT oral route Medical - [facility] mg 1 mg 2 times [facility] every [facility]) This may be an active medication. No end date is available. rasagiline 1 MG AZILECT 01/30/2017 take 1 RP [facility] Oral Tablet 12:00:00 AM EDT tablet by ([facility] [Azilect] 1 mg 1 oral route Medical - [facility] mg every day [facility]) This may be an active medication. No end date is available. 8 HR Carbidopa RYTARY 01/30/2017 take 1 RP NEXTGEN 36.25 MG / 12:00:00 AM EDT capsule by ([facility] Levodopa 145 MG oral route 6 Medical - [facility] Extended Release times every [facility] Oral Capsule day [facility]) [Rytary] 36.25 mg-145 mg 36.25 mg-145 mg This may be an active medication. No end date is available. Insurance Providers Payer name Policy type Policy ID Covered Covered green party's Policy P shaniqua / Coverage green party ID relationship to [place] [employer] type [place] MEDICARE [id number] SP [id number] [id number] [facility] [id number] SP [id number] [facility] [id number] 1 [id number] MDCR Medicare [id number] 1 [id number] Part B Par Providers MDCR Medicare [id number] 1 [id number] Part B Par Providers MEDICARE [id number] SP [id number] [id number] [facility] [id number] SP [id number] MEDICARE [id number] SP [id number] A SELF PAY SP INSURANCE Problems, Conditions, and Diagnoses Code Display Name Description Problem Type Effective Data Sour ce(s) Dates M79.672 Pain in left foot Foot pain, left Diagnosis 06/29/2020 [place] XTGEN 10:30:00 AM ([facility] EDT [facility] M54.2 Cervicalgia CERVICALGIA Diagnosis 04/27/2020 [place] 12:14:00 PM [facility] LuminateT Care [employer] M54.12 Radiculopathy, RADICULOPATHY, Diagnosis 04/24/2020 [facility] cervical region CERVICAL REGION 06:00:00 AM [facility] EDT Care [employer] Z95.2 Presence of PRESENCE OF Diagnosis 09/09/2019 [place] prosthetic heart PROSTHETIC HEART 06:00:00 AM [employer] valve VALVE EST delicious R94.31 Abnormal ABNORMAL Diagnosis 09/09/2019 [place] electrocardiogram ELECTROCARDIOGRAM 06:00:00 AM [facility] [ECG] [EKG] (ECG) (EKG) EST delicious Z09 Encounter for ENCNTR FOR F/U EXAM Diagnosis 09/09/2019 [facility] follow-up AFT TRTMT FOR COND 06:00:00 AM Count y Health examination after OTH THAN MALIG EST Car e completed treatment NEOPLM Corpo ration for conditions other than malignant neoplasm I65.23 Occlusion and OCCLUSION AND Diagnosis 08/12/2019 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) H40.112 Primary open-angle Primary open angle Diagnosis 9 NEXTGEN 3 glaucoma, left eye, glaucoma (POAG) of 11:40:00 AM ([facility] severe stage left eye, severe EDT [facility]) Surgeries/Procedures Procedure Description Date Indications Data Source(s) OFFICE/OUTPATIENT OFFICE/OUTPATIENT 06/29/2020 NEXTG EN ([facility] VISIT NEW VISIT NEW 12:00:00 AM [facility]) EYE EXAM WITH EYE EXAM WITH PHOTOS 06/05/2019 NEXTGE N ([facility] PHOTOS 12:00:00 AM [facility] ED Medical Group P C) CPTR OPHTH DX IMG CPTR OPHTH DX IMG 06/05/2019 NEXTG EN ([facility] POST SEGMT POST SEGMT 12:00:00 AM [facility]) CMPTR OPHTH IMG CMPTR OPHTH IMG OPTIC 06/05/2019 NEX TGEN ([facility] OPTIC NERVE NERVE 12:00:00 AM [facility] ED Medical Group P C) EYE EXAM&TX ESTAB EYE EXAM&TX ESTAB PT 06/05/2019 [place] XTGEN ([facility] PT 1/>VST 1/>VST 12:00:00 AM [facility])
--- NOTE | 2020-07-18 13:33 | TELE ---
HPI Do you have fever,cough or shortness of breath?: Yes - General Reason For Visit: COVID-19 TEST History Source: Patient (75-year-old male with history of Parkinson's, BPH, CAD, stents, and hypertension presents to the [facility] hotline for COVID testing.) Exam Limitations: No Limitations - History of Present Illness Timing/Duration: 24 hours Severity: reports: mild Associated Symptoms: reports: fever/chills Past History - Travel History Traveled outside of the country in the last 30 days: No Close contact w/someone who was outside of country & ill: No - Medical History Allergies/Adverse Reactions: Allergies Allergy/AdvReac Type Severity Reaction Status Date / Time Iodinated Contrast Media Allergy Verified 12/26/19 14:19 [Iodinated Contrast Media - IV Dye] IV CONTRAST Allergy Uncoded 12/26/19 14:19 Home Medications: Ambulatory Orders Aspirin [ASA -] 81 mg PO DAILY 01/22/19 Carbidopa/Levodopa [Carbidopa-Levodopa 25-100 Tab] 8 each PO QID 01/22/19 Clopidogrel Bisulfate [Plavix] 75 mg PO DAILY 01/22/19 Dutasteride [Avodart] 0.5 mg PO WEEKLY 01/22/19 Rasagiline Mesylate [Azilect] 1 mg PO DAILY 01/22/19 Rosuvastatin Calcium [Crestor] 20 mg PO HS 01/22/19 Baclofen 5 mg PO ASDIR 05/27/19 Cholecalciferol (Vitamin D3) [Vitamin D3] 1,000 unit PO DAILY 05/27/19 Cyanocobalamin (Vitamin B-12) [Vitamin B12] 2,500 mcg PO DAILY 05/27/19 Carbidopa/Levodopa [Rytary ER 48.75 mg-195 mg Cap] 1 tab PO DAILY 12/26/19 Cephalexin Monohydrate [Keflex -] 500 mg PO Q6H 7 Days #28 capsule 12/26/19 Sulfamethoxazole/Trimethoprim [Bactrim Ds Tablet] 1 each PO BID 7 Days #14 tablet 12/26/19 Cardiac Disorders: Yes (aortic valve repair, CAD w stents x2, on plavix) CVA: Yes (cody maier) COPD: No HTN: Yes Kidney Stones: Yes - Surgical History Abdominal Surgery: Yes (hernia repair) Cardiac Surgery: Yes (stents, avr) - Immunization History Immunization Up to Date: No - Psycho-Social/Smoking History Patient Lives Alone: No Lives with/in: spouse/SO Smoking History: Never smoked Have you smoked in the past 12 months: No If you are a former smoker, when did you quit?: 35 years ago Review of Systems - Review of Systems Able to Perform ROS?: Yes Limited Portuguese proficient: Yes Constitutional: Yes: Chills, Fever HEENTM: No: Symptoms Reported Respiratory: No: Symptoms reported Cardiac (ROS): No: Symptoms Reported ABD/GI: No: Symptoms Reported : No: Symptoms Reported Musculoskeletal: Yes: Joint Pain, Muscle Pain Integumentary: No: Symptoms Reported Neurological: No: Symptoms reported Endocrine: No: Symptoms Reported Hematologic/Lymphatic: No: Symptoms Reported *Physical Exam - Physical Exam General Appearance: Yes: Nourished, Appropriately Dressed. No: Apparent Distress HEENT: positive: EOMI, Pale Conjunctivae Respiratory/Chest: negative: Respiratory Distress Cardiovascular: negative: Edema Gastrointestinal/Abdominal: negative: Distended Extremity: positive: Normal Inspection Integumentary: positive: Normal Color Neurologic: positive: Motor Strength 5/5 (Ambulatory) - Medical Decision Making 07/18/20 13:32 Chief complaint: Patient requesting covid testing for low-grade temp arthralgia/myalgia. Patient with extensive history. Exam: Limited but otherwise normal PE. Plan: Covid test ordered along with influenza. Patient given strict instructions to go to the nearest ED if his symptoms do not improve or worsen over the next 24 hours despite giving fluids and Tylenol Discharge Diagnosis at time of Disposition: Encounter for laboratory testing for COVID-19 virus - Referrals - Patient Instructions - Discharge Disposition: HOME Condition at time of Disposition: Good
== END 2020-07-18 13:33 | disposition home or self-care (01) ==
LOC: JVIRT 12:56
DX: Z11.59 Encounter for screening for other viral diseases (principal)
CPT/HCPCS: C9803; Q3014-GT; U0003